=== PATIENT | female | born 1945 | race Caucasian/White ===

== ENCOUNTER 2019-12-20 09:39 | Emergency (ER) | payer OTHER ==
[~2019-12-20] VITALS: Ht 152.4 cm; Wt 79.4 kg
[2019-12-20] MEDS ORDERED: TOPROL XL50 M1 (09:55)
[2019-12-20] MEDS ORDERED: HYZAAR 100-12.1 EACH (09:55)
[2019-12-20] MEDS ORDERED: FEOSOL325 MG (09:56)
[2019-12-20] MEDS ORDERED: XANAX0.25 MG (09:56)
== END 2019-12-20 17:58 | disposition home or self-care (01) ==
LOC: ER 09:39
DX: S30.0XXA Contusion of lower back and pelvis, initial encounter (principal); M54.2 Cervicalgia; W06.XXXA Fall from bed, initial encounter; Y93.89 Activity, other specified; Y92.013 Bedroom of single-family (private) house as the place of occurrence of the external cause; Y99.8 Other external cause status